=== PATIENT | female | born 1965 | race Two or more races ===

== ENCOUNTER 2025-04-22 12:22 | Emergency (ER) | payer MEDICAID, OTHER ==
[~2025-04-22] VITALS: Ht 165.1 cm; Wt 92.4 kg
--- NOTE | 2025-04-22 12:50 | ED.PDOC ---
History of Present Illness HPI Comments 60 year old female with a history of HTN presents to the ED for the c/c of Cervical Back pain that is located "in-between her shoulder blades". Pt states that her back pain started 3x days ago and noted of a worsening factor of movement. Pt denies any trauma, or previous injury that could have caused pain. Pt notes of a SHx of Bilateral Rotator cuff surgery, and a Partial Hysterectomy surgery. Chief Complaint: Back Pain Time Seen by MD: 12:45 Reviewed Notes: Nurses Notes, Medications, Allergies Allergies: Coded Allergies: NO KNOWN ALLERGIES (Unverified , 04/22/25) Information Source: Patient Mode of Arrival: Ambulatory Severity: Mild Timing: Days Duration: Since onset, Days Prehospital treatment: None Past Medical History PAST MEDICAL HISTORY: HTN Surgical History: Hysterectomy Family History Family History: Family hx of heart max Social History Smoker: Non-Smoker Alcohol: Denies ETOH Use Drugs: Denies Drug Use Lives In: Home Constitutional: denies: chills, diaphoresis, fatigue, fever, malaise, sweats, weakness, others EENTM: denies: blurred vision, double vision, ear bleeding, ear discharge, ear drainage, ear pain, ear ringing, eye pain, eye redness, hearing loss, mouth pain, mouth swelling, nasal discharge, nose bleeding, nose congestion, nose pain, photophobia, tearing, throat pain, throat swelling, voice changes, others Respiratory: denies: cough, hemoptysis, orthopnea, SOB at rest, shortness of breath, SOB with excertion, stridor, wheezing, others Cardiovascular: denies: chest pain, dizzy spells, diaphoresis, Dyspnea on exertion, edema, irregular heart beat, left arm pain, lightheadedness, palpitations, PND, syncope, others Gastrointestinal: denies: abdomen distended, abdominal pain, blood streaked bowels, constipated, diarrhea, dysphagia, difficulty swallowing, hematemesis, melena, nausea, poor appetite, poor fluid intake, rectal bleeding, rectal pain, vomiting, others Genitourinary: denies: abnormal vagina bleeding, burning, dyspareunia, dysuria, flank pain, frequency, hematuria, incontinence, pain, , vagina disch arge, urgency, others Neurological: denies: dizziness, fainting, headache, left sided numbness, left sided weakness, numbness, paresthesia, pre-existing deficit, right sided numbness, right sided weakness, seizure, speech problems, tingling, tremors, weakness, others Musculoskeletal: reports: back pain; denies: gout, joint pain, joint swelling, muscle pain, muscle stiffness, neck pain, others Integumetry: denies: bruises, change in color, change in hair/nails, dryness, laceration, lesions, lumps, rash, wounds, others Allergic/Immunocompromised: denies: Difficulty Healing, Frequent Infections, Hives, Itching, others Hematologic/Lymphatic: denies: anemia, blood clots, easy bleeding, easy bruising, swollen glands, others Endocrine: denies: excessive hunger, excessive sweating, excessive thirst, excessive urination, flushing, intolerance to cold, intolerance to heat, unexplained weight gain, unexplained weight loss, others Psychiatric: denies: anxiety, bipolar disorder, depression, hopeless, panic disorder, schizophrenia, sleepless, suicidal, others All Other Systems: Reviewed and Negative Physical Exam General Appearance: No Apparent Distress HEENT: Normal ENT Inspection, Pharynx Normal, TMs Normal Neck: Full Range of Motion, Non-Tender, Normal, Normal Inspection Respiratory: Chest Non-Tender, Lungs Clear, No Accessory Muscle Use, No Respiratory Distress, Normal Breath Sounds Cardiovascular: No Edema, No JVD, No Murmur, No Gallop, Normal Peripheral Pul ses, Regular Rate/Rhythm Breast Exam: Deferred Gastrointestinal: No Organomegaly, Non Tender, No Pulsatile Mass, Normal Bowel Sounds, Soft Genitalia: Deferred Pelvic: Deferred Rectal: Deferred Extremities: No calf tenderness, Normal capillary refill, Normal inspection, Normal range of motion, Non-tender, No pedal edema Musculoskeletal : Location: Bilateral Extremity Location: Back (Upper back area) Apperance: Normal, Tenderness: Mild Neurologic: Alert, 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 The patient is being discharged The patient will follow up with the primary care doctor The patient will return to the emergency department's condition worsens. The patient was given ketorolac 60 mg IM. The patient understands and agrees with the management Images Reviewed?: Images reviewed and evaluated by me Time of 1ST Reevaluation: 13:16 Reevaluation 1ST: Improved Patient Education/Counseling: Diagnosis, Treatment, Prognosis, Need For Follow Up Family Education/Counseling: No Family Present SEPSIS Sepsis Screen Date sepsis recognized/suspect: Apr 22, 2025 Time Sepsis recognized/suspect: 1238 Recent Procedure: No On Antibiotic Therapy: No Respiratory Rate >20: No Heart Rate >90: No Temp<36 C (96.8 F) or >38.3 C: No SBP <90 or MAP <65 mmHG: No New Acute Mental Status Change: No Is the patient on CPAP, BIPAP,: No Physician Orders Spine Thoracic 2view (04/22/25 12:46) Vital Signs Date Time Temp Pulse Resp B/P (MAP) Pulse Ox O2 Delivery O2 Flow Rate FiO2 04/22/25 13:28 98.7 70 16 159/87 (111) 100 98.7 04/22/25 13:28 70 16 100 Room Air 04/22/25 12:38 98.0 81 17 159/86 (110) 99 98.0 Medications Medications Dose Ordered Sig/Guerita Route Start Time Stop Time Status Last Admin Dose Admin Ketorolac Tromethamine 60 mg ONCE ONCE IM 04/22/25 12:45 04/22/25 12:47 DC 04/22/25 13:25 Departure 1 Departure Time of Disposition: 13:47 Impression: Primary Impression: Musculoskeletal pain Disposition: 01 HOME / SELF CARE / HOMELESS Condition: Fair Discharged With: Self Critical Care Note Critical Care Time?: No Stability Stability form required: No Heart Score Heart Score: Heart Score Response (Comments) Value History N/A 0 EKG N/A 0 Age N/A 0 Risk Factors N/A 0 Troponin N/A 0 Total 0 I personally scribed for MATTHEW JOHNSON MD ([email or web address]) on 04/22/25 at 12:49. Electronically submitted by Amari Berg ([email or web address]). I personally scribed for MATTHEW JOHNSON MD ([email or web address]) on 04/22/25 at 13:24. Electronically submitted by Amari Berg ([email or web address]). MATTHEW JOHNSON MD Apr 22, 2025 12:49
--- NOTE | 2025-04-22 13:22 | DVH ---
INDICATION: pain TECHNIQUE: AP and lateral views of the thoracic spine in the swimmer's view of the cervicothoracic ju nction were performed. COMPARISON: None FINDINGS: No fracture, scoliosis, or listhesis of the thoracic spine. There is mild thoracic degenera tive disc disease. 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
[2025-04-22] MEDS: KETOROLAC TROMETH 60MG/2ML VIAL IM ONE (13:25)
[2025-04-22 13:28] VITALS: BP 159/87; PULSE 70; RESP 16; TEMP 98.7; O2SAT 100
[2025-04-22] MEDS ORDERED: HYDR25TA4 PO (15:43)
== END 2025-04-22 16:20 | disposition home or self-care (01) ==
LOC: ER 12:22
DX: M79.18 Myalgia, other site (principal); I10 Essential (primary) hypertension; Z90.711 Acquired absence of uterus with remaining cervical stump
CPT/HCPCS: 72070; 96372; 99283; J1885